=== PATIENT | male | born 1970 | race Caucasian/White ===

== ENCOUNTER 2018-02-25 19:54 | Emergency (ER) | payer BC ==
[2018-02-25] MEDS ORDERED: NA CHLORIDE 0.9% 1,000 ML ONE (21:56)
[2018-02-25 21:57] LABS: Absolute Lymphocytes (CBC) 2.1 K/uL (0.7-4.9); Absolute Monocytes 0.8 K/uL (0.1-1.3); Absolute Neutrophil 6.7 K/uL (1.8-8.0); Basophils % 0.8 % (0-1.3); Eosinophils % 1.3 % (0-4.4); Hematocrit 42.8 % (39.6-49.0); Lymphocytes % 21.6 % (15.3-44.8); MCH 29.7 pg (27.0-35.0); MCV 87.4 fL (80-100); MPV 9.2 fL (7.6-11.3); Monocytes % 8.2 % (3.3-12.3)
[2018-02-25 22:02] LABS: Protime INR 0.96
--- NOTE | 2018-02-25 22:04 | RAD REPORT ---
EXAM DESCRIPTION: RAD - Chest Single View - 02/25/2018 9:57 pm CLINICAL HISTORY: CONGESTION Chest pain. COMPARISON: Chest Pa And Lat (2 Views) dated 09/19/2016; Chest Pa And Lat (2 Views) dated 05/17/2016; C HEST PA AND LAT 2 VIEW dated 05/06/2013 FINDINGS: Portable technique limits examination quality. The lungs are grossly clear. The heart is normal in size. No displaced fractures. IMPRESSION: No acute intrathoracic process suspected.
[2018-02-25 22:24] LABS: ALT/SGPT 56 U/L (12-78); AST/SGOT 28 U/L (15-37); Alkaline Phosphatase 87 U/L (45-117); BUN Blood Urea Nitrogen 16 mg/dL (7-18); Bicarbonate 26 mmol/L (21-32); Bilirubin Direct 0.1 mg/dL (0-0.2); Bilirubin Total 0.3 mg/dL (0.2-1.0); Glucose Level 86 mg/dL (74-106); Magnesium 2.2 mg/dL (1.8-2.4); NT PRO-BNP 63 pg/mL (<125); Potassium 4.2 mmol/L (3.5-5.1); Protein, Total 7.9 g/dL (6.4-8.2); Sodium Level 139 mmol/L (136-145); Troponin (Emerg Dept Use Only) < 0.02 ng/mL (0.0-0.045)
[2018-02-25 23:21] LABS: Urine Blood NEGATIVE (NEG); Urine Glucose NEGATIVE (NEG); Urine Protein NEGATIVE (NEG); Urine pH 5.5 (5.0-7.0)
--- NOTE | 2018-02-26 00:19 | ER ---
Nurse's Notes [facility] Name: Sterling Stevenson Age: 48 yrs Sex: Male : 1970 Arrival Date: 02/25/2018 Time: 19:59 Bed 18 Private MD: Eyal Sanderson Diagnosis: Acute pharyngitis-bleeding Presentation: 02/25 20:08 Presenting complaint: Patient states: I was driving and I felt something in my throat la1 so I put my finger in there and it was covered in blood, right after that it felt like my sinuses cleared up. Pt denies difficulty or pain with swallowing or breathing. Transition of care: patient was not received from another setting of care. Onset of symptoms was February 25, 2018. Risk Assessment: Do you want to hurt yourself or someone else? Patient reports no desire to harm self or others. Initial Sepsis Screen: Does the patient meet any 2 criteria? No. Patient's initial sepsis screen is negative. Does the patient have a suspected source of infection? No. Patient's initial sepsis screen is negative. Care prior to arrival: None. 20:08 Method Of Arrival: Ambulatory la1 20:08 Acuity: ALEXIS 3 la1 Historical: - Allergies: 20:07 No Known Allergies; la1 - Home Meds: 20:07 Unable to obtain [Active]; la1 - PMHx: 20:07 Hypertension; la1 - PSHx: 20:07 Right arm and left leg; la1 - Immunization history:: Adult Immunizations up to date. - Social history:: Smoking status: Patient/guardian denies using tobacco, Patient uses chewing tobacco. - Ebola Screening: : No symptoms or risks identified at this time. - Family history:: not pertinent. Screenin:35 Abuse screen: Denies threats or abuse. Nutritional screening: No deficits noted. jd3 Tuberculosis screening: No symptoms or risk factors identified. Fall Risk Ambulatory Aid- None/Bed Rest/Nurse Assist (0 pts). Gait- Normal/Bed Rest/Wheelchair (0 pts) Mental Status- Oriented to own ability (0 pts). Total Nicolas Fall Scale indicates No Risk (0-24 pts). Assessment: 20:24 General: Appears in no apparent distress. Behavior is cooperative, appropriate for age, jd3 anxious. Pain: Denies pain. Neuro: Level of Consciousness is awake, alert, obeys commands, Oriented to person, place, time, situation. Cardiovascular: Capillary refill < 3 seconds Patient's skin is warm and dry. Respiratory: Airway is patent Breath sounds are clear bilaterally. Denies cough. GI: No signs and/or symptoms were reported involving the gastrointestinal system. : No signs and/or symptoms were reported regarding the genitourinary system. EENT: Tympanic membrane clear on left ear and right ear Ear canal clear on left ear and right ear Throat is clear Reports blood noted in throat prior to arrival.. Derm: Skin is intact, Skin is dry, Skin is normal, Skin temperature is warm. Musculoskeletal: Circulation, motion, and sensation intact. Range of motion: intact in all extremities. 21:56 Reassessment: Patient appears in no apparent distress at this time. No changes from jd3 previously documented assessment. Patient and/or family updated on plan of care and expected duration. Pain level reassessed. Patient is alert, oriented x 3, equal unlabored respirations, skin warm/dry/pink. 23:08 Reassessment: Patient appears in no apparent distress at this time. Patient and/or jd3 family updated on plan of care and expected duration. Pain level reassessed. Patient is alert, oriented x 3, equal unlabored respirations, skin warm/dry/pink. 23:51 Reassessment: Patient appears in no apparent distress at this time. Patient and/or jd3 family updated on plan of care and expected duration. Pain level reassessed. Patient is alert, oriented x 3, equal unlabored respirations, skin warm/dry/pink. small amount of blood noted at the back of throat. 02/26 01:05 Reassessment: Patient appears in no apparent distress at this time. No changes from jd3 previously documented assessment. Patient and/or family updated on plan of care and expected duration. Pain level reassessed. Patient is alert, oriented x 3, equal unlabored respirations, skin warm/dry/pink. Vital Signs: 02/25 20:09 BP 130 / 75; Pulse 82; Resp 18; Temp 98.5; Pulse Ox 97% on R/A; Weight 133.81 kg; la1 Height 5 ft. 11 in. (180.34 cm); Pain 0/10; 21:55 BP 149 / 78; Pulse 67; Resp 16 S; Pulse Ox 97% on R/A; Pain 0/10; jd3 23:08 BP 132 / 86; Pulse 66; Resp 18 S; Pulse Ox 97% on R/A; jd3 23:52 BP 143 / 86; Pulse 74; Resp 16 S; Pulse Ox 97% on R/A; jd3 02/26 01:05 BP 129 / 73; Pulse 74; Resp 17 S; Pulse Ox 97% on R/A; jd3 02/25 20:09 Body Mass Index 41.14 (133.81 kg, 180.34 cm) la1 ED Course: 02/25 19:59 Patient arrived in ED. es 19:59 Eyal Sanderson MD is Private Physician. es 20:09 Triage completed. la1 20:10 Arm band placed on right wrist. la1 20:24 Ricky Oro, PAUL is Primary Nurse. jd3 20:35 Patient has correct armband on for positive identification. Bed in low position. Call jd3 light in reach. Side rails up X 1. Adult w/ patient. 21:18 Manish Shoemaker MD is Attending Physician. jay 21:42 Inserted saline lock: 20 gauge in left antecubital area, using aseptic technique. Blood jd3 collected. Missed attempt(s): 20 gauge in left forearm. Bleeding controlled, band aid applied, catheter tip intact. 21:53 X-ray completed. Portable x-ray completed in exam room. Patient tolerated procedure ka well. 21:55 XRAY Chest (1 view) In Process Unspecified. EDMS 22:46 Soft Tissue Neck W/Contr CT In Process Unspecified. EDMS 22:50 CT completed. Patient moved to CT via wheelchair. Patient moved back from CT. cw1 02/26 00:18 Eyal Sanderson MD is Referral Physician. jay 00:18 Liliam Franco MD is Referral Physician. jay 01:04 No provider procedures requiring assistance completed. IV discontinued, intact, jd3 bleeding controlled, No redness/swelling at site. Pressure dressing applied. Administered Medications: 02/25 21:34 CANCELLED (Duplicate Order): Kenan-Synephrine [place] 0.5 % 2 sprays Intranasal once jay 21:53 Drug: NS 0.9% 1000 ml Route: IV; Rate: 1 bolus; Site: left antecubital; jd3 02/26 01:03 Follow up: Response: No adverse reaction; IV Status: Completed infusion; IV Intake: jd3 1000ml 01:03 Drug: Augmentin 875 mg Route: PO; jd3 01:03 Follow up: Response: Medication administered at discharge. jd3 Intake: 01:03 IV: 1000ml; Total: 1000ml. jd3 Outcome: 00:18 Discharge ordered by . jay 01:04 Discharged to home ambulatory, with family. jd3 01:04 Condition: stable 01:04 Discharge instructions given to patient, family, Instructed on discharge instructions, follow up and referral plans. medication usage, Demonstrated understanding of instructions, follow-up care, medications, Prescriptions given X 1. 01:11 Patient left the ED. jd3 Signatures: Dispatcher [employer] EDManish Peng MD MD cha Salyer, Nelida Ortiz, Crystal cw1 Marcus Rodriguez RN RN la1 Laverne Diaz Jonathon RN RN jd3 Corrections: (The following items were deleted from the chart) 02/25 20:35 20:24 Respiratory: Airway is patent Breath sounds are clear bilaterally. Denies cough, jd3 jd3 20:35 20:24 EENT: Tympanic membrane clear on left ear and right ear Throat is clear jd3 jd3 23:53 23:51 Reassessment: Patient appears in no apparent distress at this time. No changes jd3 from previously documented assessment. Patient and/or family updated on plan of care and expected duration. Pain level reassessed. Patient is alert, oriented x 3, equal unlabored respirations, skin warm/dry/pink. jd3
--- NOTE | 2018-02-26 00:19 | EDPHYS ---
Physician Documentation [facility] Name: Sterling Stevenson Age: 48 yrs Sex: Male : 1970 Arrival Date: 02/25/2018 Time: 19:59 Bed 18 Private MD: Eyal Sanderson ED Physician Manish Shoemaker HPI: 02/25 22:02 This 48 yrs old Male presents to ER via Ambulatory with complaints of jay Bleeding throat. 22:02 The patient presents with bleeding. The problem is located in the submental area, right jay submandibular area and right sternocleidomastoid. Onset: The symptoms/episode began/occurred just prior to arrival. Duration: The symptoms are intermittent, with episodes lasting seconds at a time. Modifying factors: The symptoms are alleviated by nothing, the symptoms are aggravated by nothing. Severity of symptoms: At their worst the symptoms were mild. The patient has not experienced similar symptoms in the past. Historical: - Allergies: 20:07 No Known Allergies; la1 - Home Meds: 20:07 Unable to obtain [Active]; la1 - PMHx: 20:07 Hypertension; la1 - PSHx: 20:07 Right arm and left leg; la1 - Immunization history:: Adult Immunizations up to date. - Social history:: Smoking status: Patient/guardian denies using tobacco, Patient uses chewing tobacco. - Ebola Screening: : No symptoms or risks identified at this time. - Family history:: not pertinent. ROS: 22:02 Constitutional: Negative for fever, chills, and weight loss, Eyes: Negative for injury, jay pain, redness, and discharge, Neck: Negative for injury, pain, and swelling, Cardiovascular: Negative for chest pain, palpitations, and edema, Respiratory: Negative for shortness of breath, cough, wheezing, and pleuritic chest pain, Abdomen/GI: Negative for abdominal pain, nausea, vomiting, diarrhea, and constipation, Back: Negative for injury and pain, : Negative for injury, bleeding, discharge, and swelling, MS/Extremity: Negative for injury and deformity, Skin: Negative for injury, rash, and discoloration, Neuro: Negative for headache, weakness, numbness, tingling, and seizure, Psych: Negative for depression, anxiety, suicide ideation, homicidal ideation, and hallucinations, Allergy/Immunology: Negative for hives, rash, and allergies, Endocrine: Negative for neck swelling, polydipsia, polyuria, polyphagia, and marked weight changes, Hematologic/Lymphatic: Negative for swollen nodes, abnormal bleeding, and unusual bruising. 22:02 ENT: Positive for sore throat. Exam: 22:02 Constitutional: This is a well developed, well nourished patient who is awake, alert, jay and in no acute distress. Head/Face: Normocephalic, atraumatic. Eyes: Pupils equal round and reactive to light, extra-ocular motions intact. Lids and lashes normal. Conjunctiva and sclera are non-icteric and not injected. Cornea within normal limits. Periorbital areas with no swelling, redness, or edema. ENT: Nares patent. No nasal discharge, no septal abnormalities noted. Tympanic membranes are normal and external auditory canals are clear. Oropharynx with no redness, swelling, or masses, exudates, or evidence of obstruction, uvula midline. Mucous membranes moist. Neck: Trachea midline, no thyromegaly or masses palpated, and no cervical lymphadenopathy. Supple, full range of motion without nuchal rigidity, or vertebral point tenderness. No Meningismus. Chest/axilla: Normal chest wall appearance and motion. Nontender with no deformity. No lesions are appreciated. Cardiovascular: Regular rate and rhythm with a normal S1 and S2. No gallops, murmurs, or rubs. Normal PMI, no JVD. No pulse deficits. Respiratory: Lungs have equal breath sounds bilaterally, clear to auscultation and percussion. No rales, rhonchi or wheezes noted. No increased work of breathing, no retractions or nasal flaring. Abdomen/GI: Soft, non-tender, with normal bowel sounds. No distension or tympany. No guarding or rebound. No evidence of tenderness throughout. Back: No spinal tenderness. No costovertebral tenderness. Full range of motion. Skin: Warm, dry with normal turgor. Normal color with no rashes, no lesions, and no evidence of cellulitis. MS/ Extremity: Pulses equal, no cyanosis. Neurovascular intact. Full, normal range of motion. Neuro: Awake and alert, GCS 15, oriented to person, place, time, and situation. Cranial nerves II-XII grossly intact. Motor strength 5/5 in all extremities. Sensory grossly intact. Cerebellar exam normal. Normal gait. Psych: Awake, alert, with orientation to person, place and time. Behavior, mood, and affect are within normal limits. Vital Signs: 20:09 BP 130 / 75; Pulse 82; Resp 18; Temp 98.5; Pulse Ox 97% on R/A; Weight 133.81 kg; la1 Height 5 ft. 11 in. (180.34 cm); Pain 0/10; 21:55 BP 149 / 78; Pulse 67; Resp 16 S; Pulse Ox 97% on R/A; Pain 0/10; jd3 23:08 BP 132 / 86; Pulse 66; Resp 18 S; Pulse Ox 97% on R/A; jd3 23:52 BP 143 / 86; Pulse 74; Resp 16 S; Pulse Ox 97% on R/A; [facility] 02/26 01:05 BP 129 / 73; Pulse 74; Resp 17 S; Pulse Ox 97% on R/A; [facility] 02/25 20:09 Body Mass Index 41.14 (133.81 kg, 180.34 cm) [facility] MDM: 02/25 21:48 Patient medically screened. [facility] 22:05 Data reviewed: vital signs, nurses notes, lab test result(s), EKG, radiologic studies. [facility] 02/25 21:09 Order name: Basic Metabolic Panel; Complete Time: 22:58 [facility] 02/25 21:09 Order name: CBC with Diff; Complete Time: 22:58 [facility] 02/25 21:09 Order name: LFT's; Complete Time: 22:58 [facility] 02/25 21:09 Order name: Magnesium; Complete Time: 22:58 [facility] 02/25 21:09 Order name: NT PRO-BNP; Complete Time: 22:58 [facility] 02/25 21:09 Order name: PT-INR; Complete Time: 22:58 [facility] 02/25 21:09 Order name: Troponin (emerg Dept Use Only); Complete Time: 22:58 [facility] 02/25 21:09 Order name: XRAY Chest (1 view); Complete Time: 22:58 [facility] 02/25 21:10 Order name: Type And Screen; Complete Time: 22:58 [facility] 02/25 22:02 Order name: Soft Tissue Neck W/Contr CT [facility] 02/25 23:03 Order name: Urine Dipstick--Ancillary (enter results) 02/25 21:09 Order name: EKG; Complete Time: 21:10 [facility] 02/25 21:09 Order name: Cardiac monitoring; Complete Time: 21:47 [facility] 02/25 21:09 Order name: EKG - Nurse/Tech; Complete Time: 21:47 [facility] 02/25 21:09 Order name: IV Saline Lock; Complete Time: 21:47 [facility] 02/25 21:09 Order name: Labs collected and sent; Complete Time: 21:47 [facility] 02/25 21:09 Order name: O2 Per Protocol; Complete Time: 21:10 [facility] 02/25 21:09 Order name: O2 Sat Monitoring; Complete Time: 21: [facility] 02/25 21:19 Order name: Urine Dipstick-Ancillary (obtain specimen); Complete Time: 23:02 [facility] Administered Medications: 21:34 CANCELLED (Duplicate Order): Kenan-Synephrine [place] 0.5 % 2 sprays Intranasal once [facility] 21:53 Drug: NS 0.9% 1000 ml Route: IV; Rate: 1 bolus; Site: left antecubital; [facility] 02/26 01:03 Follow up: Response: No adverse reaction; IV Status: Completed infusion; IV Intake: [facility] 1000ml 01:03 Drug: Augmentin 875 mg Route: PO; [facility] 01:03 Follow up: Response: Medication administered at discharge. [facility] Disposition: 02/26/18 00:18 Discharged to Home. Impression: Acute pharyngitis - bleeding. - Condition is Stable. - Discharge Instructions: Pharyngitis, Pharyngitis, Tcov-da-Eosl, Sore Throat, Ndov-[id number]. - Prescriptions for Augmentin 875- 125 mg Oral Tablet - take 1 tablet by ORAL route every 12 hours for 10 days; 20 tablet. - Medication Reconciliation Form, Thank You Letter, Antibiotic Education, Prescription Opioid Use form. - Follow up: Eyal Sanderson; When: 2 - 3 days; Reason: Recheck today's complaints, Continuance of care, Re-evaluation by your physician. Follow up: Liliam Franco; When: 1 - 2 days; Reason: Recheck today's complaints, Re-evaluation by your physician. - Problem is new. - Symptoms have improved. Signatures: Dispatcher [employer] EDManish Peng MD MD cha Attema, Lee, RN RN la1 Ricky Oro RN RN jd3 Corrections: (The following items were deleted from the chart) 02/25 21:34 21:29 Kenan-Synephrine [place] 0.5 % 2 sprays Intranasal once ordered. jay thompson 22:17 21:20 Chest For PE Angio+CT.RAD.BRZ ordered. [facility] EDMS 02/26 01:11 00:18 02/26/2018 00:18 Discharged to Home. Impression: Acute pharyngitis - bleeding. jd3 Condition is Stable. Discharge Instructions: Pharyngitis, Pharyngitis, Bfjy-[id number]-Cusq, Sore Throat, Mbit-xz-[id number]. Prescriptions for Augmentin 875-125 mg Oral Tablet - take 1 tablet by ORAL route every 12 hours for 10 days; 20 tablet. and Forms are Medication Reconciliation Form, Thank You Letter, Antibiotic Education, Prescription Opioid Use. Follow up: Eyal Sanderson; When: 2 - 3 days; Reason: Recheck today's complaints, Continuance of care, Re-evaluation by your physician. Follow up: Liliam Franco; When: 1 - 2 days; Reason: Recheck today's complaints, Re-evaluation by your physician. Problem is new. Symptoms have improved. jay
[2018-02-26] MEDS ORDERED: AMOX/K CLAV 875 MG TAB ONE (01:04)
--- NOTE | 2018-02-26 07:04 | EKG ---
Test Date: 2018-02-25 Test Time: 21:16:31 Back End Engineer: CHERRIE MEASUREMENT RESULTS: Intervals: Rate: 64 ID: [id number] QRSD: 94 QT: 386 QTc: 398 [place]: P: 20 ID: [id number] QRS: 24 T: 20 INTERPRETIVE STATEMENTS: Normal sinus rhythm Normal ECG No previous ECG available for comparison Electronically Signed On 02-26-18 07:04:12 PLANISHER by Cortes Romano
--- NOTE | 2018-02-26 09:57 | RAD REPORT ---
EXAM DESCRIPTION: CT - Soft Tissue Neck W/Contr CLINICAL HISTORY: PAIN Coughing up blood. COMPARISON: None TECHNIQUE All CT scans are performed using dose optimization technique as appropriate and may includ e automated exposure control or mA/KV adjustment according to patient size. FINDINGS: Nasopharyngeal tissues are normal in appearance. Fossa Rosenmller are normal. Parapharyngeal fat triangles are symmetric. Tongue base structures are normal. Epiglottis and aryepiglottic folds are normal. Piriform sinuses are well aerated. The vocal cords are normal in appearance. Both parotid glands appear somewhat prominent size symmetrically. Upper lung benitez are clear. Included intracranial contents are unremarkable. IMPRESSION: No acute finding demonstrated.
== END 2018-02-26 01:11 | disposition home or self-care (01) ==
LOC: ER 19:54
DX: J02.9 Acute pharyngitis, unspecified (principal); R04.1 Hemorrhage from throat; F17.220 Nicotine dependence, chewing tobacco, uncomplicated
CPT/HCPCS: 36415; 70491; 71045; 80048; 80076; 81003; 83735; 83880; 84484; 85025; 85610; 86850; 86900; 86901; 93005; 96360; 96361; 99284; J7030; Q9967

== ENCOUNTER → 2023-07-03 | Emergency (ER) | payer BC ==
[~2023-07-03] MED LIST: KETOROLAC 30 MG/ML INJ ONE; NA CHLORIDE 0.9% 1,000 ML ONE; ONDANSETRON 4 MG/2 ML VIAL ONE; OSELTAMIVIR 75 MG CAP PO ONE
--- OUTSIDE RECORDS SUMMARY | 2023-07-03 22:13 | XMS REPORT | Continuity of Care Document ---
Author Name Unknown Address [address] [facility] [address] [place] [address] [facility] Address [address] [facility] [address] [place] [address] Care Team Providers Care Application Lead Name Role Phone Eyal Sanderson Primary Care Physician [phone] JADE GOLDSTEIN Attending Clinician Unavaila Jade Mays Attending Clinician [phone], [facility] Attending Clinician Unavailable KJ LEWIS Attending Clinician Unavailable Kj Lewis MD Attending Clinician Lab, Ang - Db Attending Clinician Unavailable Doctor Unassigned, [place] Attending Clinician U MIRNA Agosto Attending Clinician UnaALICIA Sauceda [facility] Attending Clinicia n Unavailable 2, ISU CHAIR Attending Clinician Unavailable RON JASON Attending Clinician Unavailable JUN ALATORRE Attending Clinician Unavailable RADIOLOGY Attending Clinician Unavailable NADER SHAY Admitting Clinician Unavailable Payers Payer Name Policy Type Policy Number Effective Date Expirati on Date Source BCBS 2 [id number] 2020 00:00:00 Allergies, Adverse Reactions, Alerts Allergy Name Allergy Type Status Severity Reaction(s) Onset Date Inactive Date Treating Clinician Comments Source NO KNOWN ALLERGIE S Drug Class Active [facility] Social History Social Habit Start Date Stop Date Quantity Comments Source Sexual orientation [facility] Sex Assigned At 1970 00:00:00 1970 00:00:00 [facility] Smoking Status Start Date Stop Date Source Tobacco smoking consumption unknown [facility] Medications Ordered Medication Name Filled Medication Name Start Date Stop Date Current Medication? Ordering Clinician Indication Dosage Frequency Signature (SIG) Comments Components Source dexAMETHaso ne 4 mg tablet 05-09 10:22: 45 Yes 4mg Take 1 tablet by mouth every 12 (twelve) hours. Day after chemo 2 tablets twice daily for 2 days and then 1 tablet twice daily for 1 day. [facility] losartan 50 mg tablet 05-09 10:22: 45 Yes 50mg Take 1 tablet by mouth in the morning. [facility] dexAMETHaso ne 4 mg tablet 05-09 10:22: 45 Yes 4mg Take 1 tablet by mouth every 12 (twelve) hours. Day after chemo 2 tablets twice daily for 2 days and then 1 tablet twice daily for 1 day. [facility] losartan 50 mg tablet 05-09 10:22: 45 Yes 50mg Take 1 tablet by mouth in the morning. [facility] dexAMETHaso ne 4 mg tablet 05-09 10:22: 45 Yes 4mg Take 1 tablet by mouth every 12 (twelve) hours. Day after chemo 2 tablets twice daily for 2 days and then 1 tablet twice daily for 1 day. [facility] losartan 50 mg tablet 05-09 10:22: 45 Yes 50mg Take 1 tablet by mouth in the morning. [facility] dexAMETHaso ne 4 mg tablet 2023-0 05-09 10:22: 45 Yes 4mg Take 1 tablet by mouth every 12 (twelve) hours. Day after chemo 2 tablets twice daily for 2 days and then 1 tablet twice daily for 1 day. [facility] losartan 50 mg tablet 05-09 10:22: 45 Yes 50mg Take 1 tablet by mouth in the morning. [facility] dexAMETHaso ne 4 mg tablet 05-09 10:22: 45 Yes 4mg Take 1 tablet by mouth every 12 (twelve) hours. Day after chemo 2 tablets twice daily for 2 days and then 1 tablet twice daily for 1 day. [facility] losartan 50 mg tablet 05-09 10:22: 45 Yes 50mg Take 1 tablet by mouth in the morning. [facility] dexAMETHaso ne 4 mg tablet 05-09 10:22: 45 Yes 4mg Take 1 tablet by mouth every 12 (twelve) hours. Day after chemo 2 tablets twice daily for 2 days and then 1 tablet twice daily for 1 day. [facility] losartan 50 mg tablet 05-09 10:22: 45 Yes 50mg Take 1 tablet by mouth in the morning. [facility] dexAMETHaso ne 4 mg tablet 05-09 10:22: 45 Yes 4mg Take 1 tablet by mouth every 12 (twelve) hours. Day after chemo 2 tablets twice daily for 2 days and then 1 tablet twice daily for 1 day. [facility] losartan 50 mg tablet 05-09 10:22: 45 Yes 50mg Take 1 tablet by mouth in the morning. [facility] testosteron e cypionate 200 mg/mL injection 2022-04 00:00: 00 Yes [id number] 100mg 0.5 mL by Intramuscu lar route weekly. [facility] testosteron e cypionate 200 mg/mL injection 2022-04 00:00: 00 Yes [id number] 100mg 0.5 mL by Intramuscu lar route weekly. [facility] testosteron e cypionate 200 mg/mL injection 2022-04 2 00:00: 00 Yes [id number] 100mg 0.5 mL by Intramuscu lar route weekly. [facility] testosteron e cypionate 200 mg/mL injection 2022-04 00:00: 00 Yes [id number] 100mg 0.5 mL by Intramuscu lar route weekly. [facility] testosteron e cypionate 200 mg/mL injection 2022-04 00:00: 00 Yes [id number] 100mg 0.5 mL by Intramuscu lar route weekly. [facility] testosteron e cypionate 200 mg/mL injection 2022-04 00:00: 00 Yes [id number] 100mg 0.5 mL by Intramuscu lar route weekly. [facility] testosteron e cypionate 200 mg/mL injection 2022-04 00:00: 00 Yes [id number] 100mg 0.5 mL by Intramuscu lar route weekly. [facility] testosteron e cypionate 200 mg/mL injection 2022-04 00:00: 00 Yes [id number] 100mg 0.5 mL by Intramuscu lar route weekly. [facility] celecoxib 200 mg capsule 2022-04 14:55: 51 Yes 200mg Take 1 capsule by mouth. [facility] celecoxib 200 mg capsule 2022-04 14:55: 51 Yes 200mg Take 1 capsule by mouth. [facility] celecoxib 200 mg capsule 2022-04 14:55: 51 Yes 200mg Take 1 capsule by mouth. [facility] celecoxib 200 mg capsule 2022-04 14:55: 51 Yes 200mg Take 1 capsule by mouth. [facility] celecoxib 200 mg capsule 2022-04 14:55: 51 Yes 200mg Take 1 capsule by mouth. [facility] celecoxib 200 mg capsule 2022-04 14:55: 51 Yes 200mg Take 1 capsule by mouth. [facility] celecoxib 200 mg capsule 2022-04 14:55: 51 Yes 200mg Take 1 capsule by mouth. [facility] celecoxib 200 mg capsule 2022-04 14:55: 51 Yes 200mg Take 1 capsule by mouth. [facility] celecoxib 200 mg capsule 2022-04 14:55: 51 Yes 200mg Take 1 capsule by mouth. [facility] celecoxib 200 mg capsule 2022-04 14:55: 51 Yes 200mg Take 1 capsule by mouth. [facility] celecoxib 200 mg capsule 2022-04 14:55: 51 Yes 200mg Take 1 capsule by mouth. [facility] clindamycin 300 mg capsule 2022-04 0- 00:00: 00 Yes TAKE ONE 1 CAPSULE BY MOUTH IN THE MORNING AND 1 CAPSULE IN THE EVENING AND 1 CAPSULE BEFORE BEDTIME FOR 7 DAYS. [facility] clindamycin 300 mg capsule 2022-04 0 00:00: 00 Yes TAKE ONE 1 CAPSULE BY MOUTH IN THE MORNING AND 1 CAPSULE IN THE EVENING AND 1 CAPSULE BEFORE BEDTIME FOR 7 DAYS. [facility] clindamycin 300 mg capsule 2022-04 0 00:00: 00 Yes TAKE ONE 1 CAPSULE BY MOUTH IN THE MORNING AND 1 CAPSULE IN THE EVENING AND 1 CAPSULE BEFORE BEDTIME FOR 7 DAYS. [facility] clindamycin 300 mg capsule 2022-04 0 00:00: 00 Yes TAKE ONE 1 CAPSULE BY MOUTH IN THE MORNING AND 1 CAPSULE IN THE EVENING AND 1 CAPSULE BEFORE BEDTIME FOR 7 DAYS. [facility] clindamycin 300 mg capsule 2022-04 0 00:00: 00 05-09 00:00 :00 No TAKE ONE 1 CAPSULE BY MOUTH IN THE MORNING AND 1 CAPSULE IN THE EVENING AND 1 CAPSULE BEFORE BEDTIME FOR 7 DAYS. [facility] clindamycin 300 mg capsule 2022-04 0 00:00: 00 05-09 00:00 :00 No TAKE ONE 1 CAPSULE BY MOUTH IN THE MORNING AND 1 CAPSULE IN THE EVENING AND 1 CAPSULE BEFORE BEDTIME FOR 7 DAYS. [facility] testosteron e cypionate 200 mg/mL injection 12-14 00:00: 00 Yes 200mg 1 mL by Intramuscu lar route. [facility] testosteron e cypionate 200 mg/mL injection 12-14 00:00: 00 Yes 200mg 1 mL by Intramuscu lar route. [facility] testosteron e cypionate 200 mg/mL injection 12-14 00:00: 00 Yes 200mg 1 mL by Intramuscu lar route. [facility] ergocalcife rol, vitamin d2, 1,250 mcg (50,000 unit) capsule 12-14 00:00: 00 03-15 05:59 :00 No [id number] Take 1 capsule by mouth. [facility] ergocalcife rol, vitamin d2, 1,250 mcg (50,000 unit) capsule 12-14 00:00: 00 03-15 05:59 :00 No [id number] Take 1 capsule by mouth. [facility] ergocalcife rol, vitamin d2, 1,250 mcg (50,000 unit) capsule 12-14 00:00: 00 03-15 05:59 :00 No [id number] Take 1 capsule by mouth. [facility] ergocalcife rol, vitamin d2, 1,250 mcg (50,000 unit) capsule 12-14 00:00: 00 03-15 05:59 :00 No [id number] Take 1 capsule by mouth. [facility] testosteron e cypionate 200 mg/mL injection 12-14 00:00: 00 03-14 00:00 :00 No 200mg 1 mL by Intramuscu lar route. [facility] atorvastati n 10 mg tablet 09-29 00:00: 00 Yes 10mg Take 1 tablet by mouth. [facility] fluticasone propionate 50 mcg/actuati on nasal spray 09-29 00:00: 00 Yes 2{spray } Use 2 Sprays in each nostril. [facility] montelukast 10 mg tablet 09-29 00:00: 00 Yes 10mg Take 1 tablet by mouth. [facility] atorvastati n 10 mg tablet 09-29 00:00: 00 Yes 10mg Take 1 tablet by mouth. [facility] fluticasone propionate 50 mcg/actuati on nasal spray 09-29 00:00: 00 Yes 2{spray } Use 2 Sprays in each nostril. [facility] montelukast 10 mg tablet 09-29 00:00: 00 Yes 10mg Take 1 tablet by mouth. [facility] atorvastati n 10 mg tablet 09-29 00:00: 00 Yes 10mg Take 1 tablet by mouth. [facility] fluticasone propionate 50 mcg/actuati on nasal spray 0 09-29 00:00: 00 Yes 2{spray } Use 2 Sprays in each nostril. [facility] montelukast 10 mg tablet 2022-0 09-29 00:00: 00 Yes 10mg Take 1 tablet by mouth. [facility] atorvastati n 10 mg tablet 0 09-29 00:00: 00 Yes 10mg Take 1 tablet by mouth. [facility] fluticasone propionate 50 mcg/actuati on nasal spray 0 09-29 00:00: 00 Yes 2{spray } Use 2 Sprays in each nostril. [facility] montelukast 10 mg tablet 0 09-29 00:00: 00 Yes 10mg Take 1 tablet by mouth. [facility] atorvastati n 10 mg tablet 0 09-29 00:00: 00 Yes 10mg Take 1 tablet by mouth. [facility] fluticasone propionate 50 mcg/actuati on nasal spray 0 09-29 00:00: 00 Yes 2{spray } Use 2 Sprays in each nostril. [facility] montelukast 10 mg tablet 0 09-29 00:00: 00 Yes 10mg Take 1 tablet by mouth. [facility] atorvastati n 10 mg tablet 0 09-29 00:00: 00 Yes 10mg Take 1 tablet by mouth. [facility] fluticasone propionate 50 mcg/actuati on nasal spray 0 09-29 00:00: 00 Yes 2{spray } Use 2 Sprays in each nostril. [facility] montelukast 10 mg tablet 0 09-29 00:00: 00 Yes 10mg Take 1 tablet by mouth. [facility] atorvastati n 10 mg tablet 2022-0 09-29 00:00: 00 Yes 10mg Take 1 tablet by mouth. [facility] fluticasone propionate 50 mcg/actuati on nasal spray 2022-0 09-29 00:00: 00 Yes 2{spray } Use 2 Sprays in each nostril. [facility] montelukast 10 mg tablet 2022-0 09-29 00:00: 00 Yes 10mg Take 1 tablet by mouth. [facility] atorvastati n 10 mg tablet 2022-0 09-29 00:00: 00 Yes 10mg Take 1 tablet by mouth. [facility] lisinopriL 10 mg tablet 2022-0 09-29 00:00: 00 Yes 10mg Take 1 tablet by mouth. [facility] fluticasone propionate 50 mcg/actuati on nasal spray 0 09-29 00:00: 00 Yes 2{spray } Use 2 Sprays in each nostril. [facility] montelukast 10 mg tablet 2022-0 09-29 00:00: 00 Yes 10mg Take 1 tablet by mouth. [facility] atorvastati n 10 mg tablet 2022-0 09-29 00:00: 00 Yes 10mg Take 1 tablet by mouth. [facility] lisinopriL 10 mg tablet 2022-0 09-29 00:00: 00 Yes 10mg Take 1 tablet by mouth. [facility] fluticasone propionate 50 mcg/actuati on nasal spray 2022-0 09-29 00:00: 00 Yes 2{spray } Use 2 Sprays in each nostril. [facility] montelukast 10 mg tablet 2022-0 09-29 00:00: 00 Yes 10mg Take 1 tablet by mouth. [facility] atorvastati n 10 mg tablet 2022-0 09-29 00:00: 00 Yes 10mg Take 1 tablet by mouth. [facility] lisinopriL 10 mg tablet 2022-0 09-29 00:00: 00 Yes 10mg Take 1 tablet by mouth. [facility] fluticasone propionate 50 mcg/actuati on nasal spray 2022-0 09-29 00:00: 00 Yes 2{spray } Use 2 Sprays in each nostril. [facility] montelukast 10 mg tablet 09-29 00:00: 00 Yes 10mg Take 1 tablet by mouth. [facility] atorvastati n 10 mg tablet 09-29 00:00: 00 Yes 10mg Take 1 tablet by mouth. [facility] lisinopriL 10 mg tablet 09-29 00:00: 00 Yes 10mg Take 1 tablet by mouth. [facility] fluticasone propionate 50 mcg/actuati on nasal spray 09-29 00:00: 00 Yes 2{spray } Use 2 Sprays in each nostril. [facility] montelukast 10 mg tablet 09-29 00:00: 00 Yes 10mg Take 1 tablet by mouth. [facility] lisinopriL 10 mg tablet 09-29 00:00: 00 05-09 00:00 :00 No 10mg Take 1 tablet by mouth. [facility] lisinopriL 10 mg tablet 09-29 00:00: 00 05-09 00:00 :00 No 10mg Take 1 tablet by mouth. [facility] amLODIPine 5 mg tablet 0 07-06 00:00: 00 Yes 5mg Take 1 tablet by mouth. [facility] amLODIPine 5 mg tablet 0 07-06 00:00: 00 Yes 5mg Take 1 tablet by mouth. [facility] amLODIPine 5 mg tablet 2022-0 07-06 00:00: 00 Yes 5mg Take 1 tablet by mouth. [facility] amLODIPine 5 mg tablet 2022-0 07-06 00:00: 00 Yes 5mg Take 1 tablet by mouth. [facility] amLODIPine 5 mg tablet 2022-0 07-06 00:00: 00 Yes 5mg Take 1 tablet by mouth. [facility] amLODIPine 5 mg tablet 2022-0 07-06 00:00: 00 Yes 5mg Take 1 tablet by mouth. [facility] amLODIPine 5 mg tablet 2022-0 07-06 00:00: 00 Yes 5mg Take 1 tablet by mouth. [facility] amLODIPine 5 mg tablet 07-06 00:00: 00 Yes 5mg Take 1 tablet by mouth. [facility] amLODIPine 5 mg tablet 07-06 00:00: 00 Yes 5mg Take 1 tablet by mouth. [facility] amLODIPine 5 mg tablet 07-06 00:00: 00 Yes 5mg Take 1 tablet by mouth. [facility] amLODIPine 5 mg tablet 07-06 00:00: 00 Yes 5mg Take 1 tablet by mouth. [facility] Vital Signs Vital Name Observation Time Observation Value Comments S ource Systolic blood pressure 2023-05-09 16:47:00 93 mm[Hg] Pt denies any symptoms dizziness, chest pain [facility] Diastolic blood pressure 2023-05-09 16:47:00 49 mm[Hg] Pt denies any symptoms dizziness, chest pain [facility] Heart rate 2023-05-09 16:23:00 74 /min [facility] Body height 2023-05-09 16:23:00 177.8 cm [facility] Body weight 2023-05-09 16:23:00 122.653 kg [facility] BMI 2023-05-09 16:23:00 38.80 kg/m2 [facility] Oxygen saturation in Arterial blood by Pulse oximetry 2023-05-09 16:23:00 95 /min [facility] Body temperature 2023-05-09 16:21:00 36.22 Kenzie [facility] Respiratory rate 2023-05-09 16:21:00 18 /min [facility] Systolic blood pressure 2023-02-28 20:43:00 139 mm[Hg] [facility] Diastolic blood pressure 2023-02-28 20:43:00 81 mm[Hg] [facility] Heart rate 2023-02-28 20:43:00 68 /min [facility] Body temperature 2023-02-28 20:43:00 36.61 Kenzie [facility] Respiratory rate 2023-02-28 20:43:00 18 /min [facility] Body height 2023-02-28 20:43:00 180.3 cm [facility] Body weight 2023-02-28 20:43:00 135.172 kg [facility] BMI 2023-02-28 20:43:00 41.56 kg/m2 [facility] Oxygen saturation in Arterial blood by Pulse oximetry 2023-02-28 20:43:00 96 /min [facility] Procedures Procedure Date / Time Performed Performing Clinicia n Source BRENDA,POST-VOID RES,US,NON-IMAGING 2023-05-09 16:33:00 Jade Goldstein [facility] POCT URINALYSIS AUTO 2023-05-09 16:12:00 Ish Goldstein [facility] CONSENT/REFUSAL FOR DIAGNOSIS AND TREATMENT 2023-02-28 20:40:20 Doctor Unassigned, [place] [facility] ASSIGNMENT OF BENEFITS 2023-02-28 20:40:08 Docto r Unassigned, [place] [facility] POCT URINALYSIS AUTO 2023-02-28 00:00:00 Octavio Lewis [facility] REFERRAL- REQUEST/RESPONSE 2023-01-30 05:01:00 Doctor Unassigned, [place] [facility] Encounters Start Date/Time End Date/Time Encounter Type Admission Type Attending [facility] Care Facility Care Department Encounter ID Source 2023-05-16 00:00:00 2023-05-16 00:00:00 Telephone Jade Goldstein [facility] [id number] 350.1.13.10 4.2.7.2.686 [id number] [facility] 2023-05-16 00:00:00 2023-05-16 00:00:00 Telephone Jade Goldstein [facility] 1.2.840.114 350.1.13.10 4.2.7.2.686 [id number] [facility] 2023-05-15 00:00:00 2023-05-15 00:00:00 [facility] [id number] 350.1.13.10 4.2.7.2.686 [id number] [facility] 2023-05-09 11:00:00 2023-05-09 11:05:28 Recyclable Materials Sorter Visit 2, Adc Lab Agnelita [facility] BUILDING 1.2840.114 350.1.13.10 4.2.7.2.686 [id number] [facility] 2023-05-09 11:00:00 2023-05-09 11:05:28 Outpatient R ANGELITA [facility] [id number] [facility] 2023-05-09 10:00:00 2023-05-09 10:50:20 Office Visit Angelita [facility] BUILDING 1.2840.114 350.1.13.10 4.2.7.2.686 [id number] [facility] 2023-03-07 13:30:00 2023-03-07 13:30:00 [facility] [id number] 2023-03-07 00:00:00 2023-03-07 00:00:00 Patient Secure Msg Joshua [facility] 1.0.114 350.1.13.10 4.2.7.2.686 [id number] [facility] 2023-02-28 16:00:00 2023-02-28 16:15:00 Recyclable Materials Sorter Visit Lab, Neri Lewis [facility] 1.2.840.114 350.1.13.10 4.2.7.2.686 [id number] [facility] 2023-02-28 15:00:00 2023-02-28 15:23:37 Outpatient R KJ LEWIS [facility] [id number] [facility] 2023-02-28 15:00:00 2023-02-28 15:23:37 Office Visit Kj Lewis [facility] [id number] 350.1.13.10 4.2.7.2.686 [id number] [facility] 2023-02-28 00:00:00 2023-02-28 00:00:00 Orders Only Doctor Unassigned, [place] [facility] [id number] 350.1.13.10 4.2.7.2.686 [id number] [facility] 2023-01-30 00:00:00 2023-01-30 00:00:00 Orders Only Doctor Unassigned, [place] [facility] 1.2840.114 350.1.13.10 4.2.7.2.686 [id number] [facility] 2020-11-24 00:00:00 2020-11-24 00:00:00 Outpatient MIRNA SOLANO [id number] [facility] 2020-11-24 00:00:00 2020-11-24 00:00:00 Outpatient , ALICIA GIORDANO [id number] [facility] 2020-11-21 11:30:00 2020-11-21 11:30:00 Outpatient Ricardo, JAZMIN GIORDANO [id number] [facility] 2020-11-20 00:00:00 2020-11-20 00:00:00 Outpatient MIRNA SOLANO [id number] [facility] 2020-11-20 00:00:00 2020-11-20 00:00:00 Outpatient RON JASON [id number] [facility] 2020-11-19 11:00:00 2020-11-19 11:33:59 Outpatient JUN DUTTON [facility] [id number] [facility] 2020-11-16 00:00:00 2020-11-16 00:00:00 Outpatient RUSS MIRNA ALICIA GIORDANO [id number] [facility] 2019-04-15 10:23:01 2019-04-15 23:59:00 Outpatient R [facility] [id number] [facility] Results Test Description Test Time Test Comments Results Result Co mments Source [id number] 16:33:00* Test Item Value Reference Range Interpretation Comme nts PVR (URINE VOLUME) (test code = 5193) 21 ml 0-100 [facility], [id number] 16:13:00 * Test Item Value Reference Range Interpretation Comme nts POCT U SP GRAV (test code = 3255) 1.010 mg/dl 1.005-1.025 POCT PH U (test code = 3254) 6.0 mg/dl 5-8 POCT U LEUK EST (test code = 3263) Negative Negative - Negative POCT U NIT (test code = 3262) Negative Negative - Negati ve POCT U PROT (test code = 3259) Trace Negative - Negative A POCT U GLU (test code = 3256) Negative Negative - Negati ve POCT U KETONE (test code = 3258) Negative Negative - Negative POCT U UROBILI (test code = 3260) 0.2 mg/dl 0.2-1 POCT U BILI (test code = 3261) Negative Negative - Negative POCT U BLD (test code = 3257) Negative Negative - Negati ve POCT U COLOR (test code = 3266) yellow POCT U APPEAR (test code = 3267) clear Lab Interpretation (test cod e = 92133-6) Abnormal [facility], [id number] 16:13:00 * Test Item Value Reference Range Interpretation Comme nts POCT U SP GRAV (test code = 3255) 1.010 mg/dl 1.005-1.025 POCT PH U (test code = 3254) 6.0 mg/dl 5-8 POCT U LEUK EST (test code = 3263) Negative Negative - Negative POCT U NIT (test code = 3262) Negative Negative - Negati ve POCT U PROT (test code = 3259) Trace Negative - Negative A POCT U GLU (test code = 3256) Negative Negative - Negati ve POCT U KETONE (test code = 3258) Negative Negative - Negative POCT U UROBILI (test code = 3260) 0.2 mg/dl 0.2-1 POCT U BILI (test code = 3261) Negative Negative - Negative POCT U BLD (test code = 3257) Negative Negative - Negati ve POCT U COLOR (test code = 3266) yellow POCT U APPEAR (test code = 3267) clear Lab Interpretation (test cod e = 41704-1) Abnormal [facility] URINALYSIS, [id number] 21:05:00 * Test Item Value Reference Range Interpretation Comme nts POCT U SP GRAV (test code = 3255) 1.020 mg/dl 1.005-1.025 POCT PH U (test code = 3254) 7 mg/dl 5-8 POCT U LEUK EST (test code = 3263) neg Negative - Negative POCT U NIT (test code = 3262) neg Negative - Negati ve POCT U PROT (test code = 3259) neg Negative - Negative POCT U GLU (test code = 3256) neg Negative - Negati ve POCT U KETONE (test code = 3258) neg Negative - Negative POCT U UROBILI (test code = 3260) 1.0 mg/dl 0.2-1 POCT U BILI (test code = 3261) neg Negative - Negative POCT U BLD (test code = 3257) neg Negative - Negati ve POCT U COLOR (test code = 3266) yellow POCT U APPEAR (test code = 3267) [facility] [id number] 21:05:00 * Test Item Value Reference Range Interpretation Comme nts POCT U SP GRAV (test code = 3255) 1.020 mg/dl 1.005-1.025 POCT PH U (test code = 3254) 7 mg/dl 5-8 POCT U LEUK EST (test code = 3263) neg Negative - Negative POCT U NIT (test code = 3262) neg Negative - Negati ve POCT U PROT (test code = 3259) neg Negative - Negative POCT U GLU (test code = 3256) neg Negative - Negati ve POCT U KETONE (test code = 3258) neg Negative - Negative POCT U UROBILI (test code = 3260) 1.0 mg/dl 0.2-1 POCT U BILI (test code = 3261) neg Negative - Negative POCT U BLD (test code = 3257) neg Negative - Negati ve POCT U COLOR (test code = 3266) yellow POCT U APPEAR (test code = 3267) clear [facility] Notes Date/Time Note Provider Source 2023-05-16 13:53:53 [id number] -02-06T13:53:53 Yes that is correct my apologies [id number] encounter [id number]:54:43Telephone encounter [id number] for patient [id number] d C-CDA narrative [address] [id number] 98RRYHSVQNBDJVMLJFUFSBBB5261-07-66 T13:54:431.2.840.676366.1.72.3.15| 1.2.840.545326.1.13.104.2.7.2.7278 [id number] [facility] 2023-05-16 12:56:47 nvPLjO4clc1vjLb4N7+E qpBh6T7bfg6LCs xDqsV5i176zbrzhzaVJSnRYRK6SVwL8751 -02-06T12:56:47 Addressed in telephone encounter 05/16/23 75362-3Bbfsmlipt encounter IkbxEX2611-04-96Z28:57:01Telephone encounter NoteTXT1.2.840.977691.1.13.104.2.7 .2.833561|[id number] for patient rssj19315-1AgtzPOQJYDISQHRBdbtpfkc d C-CDA narrative [id number] A Hall RN[address] Wv[id number] 42WHAJUVLWIPUDXBUPXHJTZS2048-10-10 T12:57:011.2.840.536936.1.72.3.15| 1.2.840.815466.1.13.104.2.7.2.7278 [id number] Veena Long RN [facility] 2023-05-16 12:54:57 119HlRfkoXE4SA5jpxwx raZjTp5zFvusbg RWcUSnlisOL2JyAGwtzCsUtEhIGcvi3746 -02-06T12:54:57 Patient notified of results/recommendations, understanding was verbalized via teach back.Patient states that he stopped his testosterone 3 months ago. States he is currently receiving chemo and radiation by Dr Rust. Will route to provider for recommendations. 42720-8Fnqofvaeb encounter JheaBB3433-96-72W77:56:38Telephone encounter NoteTXT1.2.840.247727.1.13.104.2.7 .2.367896|[id number] for patient gbgo20114-1GorcZVCNCOMPPJNJdthuxif d C-CDA narrative [id number] A Hall RN[address] Nr[id number] 89QDRJEIXAETXRVGHMEAULUB0814-81-59 T12:56:381.2.840.798735.1.72.3.15| 1.2.840.835077.1.13.104.2.7.2.7278 [id number] Veena Long RN [facility] 2023-05-16 10:44:30 qR4E0cFL2NgVwr0VneAI oPWwd6vNy4CFL3 WPhnwSydNVyFpgKzAQAPIAZjK8vc5x3351 -02-06T10:44:30 Pt is stating Pt has questions about his lab work. He did not fully understand what he was told and would like to speak to someone.Bennett- [phone] assist 88486-0Fxnndhdno encounter IgtuED7357-02-19P12:47:49Telephone encounter NoteTXT1.2.840.436967.1.13.104.2.7 .2.443235|[id number] for patient mjpy74802-5OhwkDEVVVYSGENPTaeatzmw d C-CDA narrative [id number] [id number] 91YSRMTFPIQIPPWYODRPEKQI0044-96-48 T10:47:491.2.840.870662.1.72.3.15| 1.2.840.751801.1.13.104.2.7.2.7278 [id number] Nestor Gardner [facility] 2023-05-16 09:03:22 3OZClnIwTmQayysKV2W7 anpUfMYWzwBi7k 3TJ/qe4sFZEBtuNA2QFLLBycdVKCY9688 -02-06T09:03:22 Images from the original note were not included.Veena Long RN05/16/2023 9:03 AM CARETAKER RESORT Back to TopAttempted to contact patient with no answer, Voicemail left at this time with clinic phone number and instructed patient to return call.Telephone encounter created.Jade Goldstein, FNP2 2:30 PM CSTBMP Within normal limitsCBC within normal limitsE2 15Testosterone 193PSA 1.36CMp is within normal limits except ALT 74 it has increased since starting TRT therapy I would like to repeat CMP it in 1 week if remains elevated may need to reduce dosage of TRT order has been placed. 60714-1Kkgcjvbka encounter GizyCE3129-56-14U19:03:37Telephone encounter NoteTXT1.2.840.095295.1.13.104.2.7 .2.308079|[id number] for patient rwas62632-0NgxnQFWTFOZPSJPTavttrga d C-CDA narrative text[address] Qa[id number] 78AKGLSHTPLCXIBMEZGHMXGI6938-42-19 T09:03:371.2.840.055071.1.72.3.15| 1.2.840.791868.1.13.104.2.7.2.7278 [id number] [facility] 2023-05-09 11:00:00 3ATowtpNc8qjCp3Iwvh1 BTm8/Wtriy4Azd NAKCenamkXjS9LGd4+JaiaiisYFTIu9666 -01-30T11:00:00 Images from the original note were not included.Venipuncture collection performed by clean technique on the right hand. Total of 1 attempts were made. Slight pressure and a bandage/dressing were applied to the site(s). The patient experienced no complications. The following specimens were processed according to instructions and sent to [facility] laboratories per lab order on 05/09/2023:LT BLUESST 3REDLAV 1PPTDK GREEN (LiHep)DK GREEN (SodH)GRAYDK BLUE (K2)DK BLUE (S)ACDBlood CultureNIPT/NTD 93154-4Hydhn QcghXU0835-39-00W80:05:51Nurse NoteTXT1.2.840.986141.1.13.104.2.7 .2.259761|[id number] for patient qnni36665-3Wcsjb NoteLNNARRATIVEFormatted C-CDA narrative textUT[address] Vd[id number] 79YYYYVNUBUQPWXLEOBDYPSN0567-16-57 T11:05:511.2.840.610526.1.72.3.15| 1.2.840.798759.1.13.104.2.7.2.7278 [id number] [facility]"
[2023-07-03 23:14] LABS: Absolute Lymphocytes (CBC) 0.3 K/uL (0.7-4.9); Absolute Monocytes 0.6 K/uL (0.1-1.3); Basophils % 0.4 % (0-1.3); Eosinophils % 0.1 % (0-4.4); Hematocrit 34.6 % (39.6-49.0); Hemoglobin 11.9 g/dL (13.6-17.9); Lymphocytes % 4.5 % (15.3-44.8); MCH 30.8 pg (27.0-35.0); MCHC 34.4 g/dL (32.0-36.0); MCV 89.6 fL (80-100); MPV 8.4 fL (7.6-11.3); Monocytes % 10.1 % (3.3-12.3); Neutrophils % 84.9 % (41.7-73.7); Nucleated Red Blood Cells % 0.1 % (0-0); Platelets 204 thou/uL (152-406); RBC Red Blood Cell Count 3.87 M/uL (4.33-5.43); Red Cell Distribution Width 16.1 % (12.1-15.2)
[2023-07-03 23:15] LABS: PT Prothrombin Time 12.6 SECONDS (9.5-12.5); PTT, Activated Partial Thromb 30.9 SECONDS (24.3-36.9); Protime INR 1.15
[2023-07-03 23:22] LABS: Albumin 3.3 g/dL (3.4-5.0); Anion Gap 11.3 mEq/L (5.0-15.0); Bilirubin Total 0.6 mg/dL (0.2-1.0); Globulin 3.3 g/dL (2.3-3.5); Potassium 3.3 mEq/L (3.5-5.1); Protein, Total 6.6 g/dL (6.4-8.2)
[2023-07-03 23:37] LABS: SARS-CoV-2 Antigen CONTROL BLUE LINE VIS/BG OK; SARS-CoV-2 Antigen Rapid Res Negative (Negative)
--- NOTE | 2023-07-04 01:18 | ER ---
Nurse's Notes 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 JUST jj7 FINISHED CHEMO LAST MONTH. STARTED HAVING FEVER, DIARRHEA AND RLQ PAIN LAST NIGHT. Coronavirus screen: At this time, the client does not indicate any symptoms associated with coronavirus-19. Ebola Screen: No symptoms or risks identified at this time. Initial Sepsis Screen: Does the patient meet any 2 criteria? HR > 90 bpm. Yes Does the patient have a suspected source of infection? No. Patient's initial sepsis screen is negative. Risk Assessment: Do you want to hurt yourself or someone else? Patient reports no desire to harm self or others. Onset of symptoms was July 02, 2023. 22:24 Method Of Arrival: Ambulatory [facility] 22:24 Acuity: ALEXIS 3 jj7 Triage Assessment: 22:30 General: Appears in no apparent distress. uncomfortable, Behavior is calm, cooperative, jj7 appropriate for age. Pain: Complains of pain in right lower quadrant. GI: Reports lower abdominal pain, diarrhea, nausea. Historical: - Allergies: 22:30 No Known Allergies; jj7 - PMHx: 22:30 Hypertension; TONSIL CANCER (Hypertension); jj7 - PSHx: 22:30 LEFT ANKLE (Hypertension); RIGHT ELBOW (Hypertension); jj7 - Immunization history:: Client reports having NOT received the Covid vaccine. Flu vaccine is not up to date. - Social history:: Smoking status: Patient denies any tobacco usage or history of. Patient/guardian denies using alcohol, street drugs, IV drugs. Screenin:32 [facility] ED Fall Risk Assessment (Adult) History of falling in the last 3 months, jj7 including since admission No falls in past 3 months (0 pts) Confusion or Disorientation No (0 pts) Intoxicated or Sedated No (0 pts) Impaired Gait No (0 pts) Mobility Assist Device Used No (0 pt) Altered Elimination No (0 pt) Score/Fall Risk Level 0 - 2 = Low Risk Oriented to surroundings, Maintained a safe environment, Educated pt \T\ family on fall prevention, incl call for assistance when getting out of bed. Abuse screen: Denies threats or abuse. Nutritional screening: No deficits noted. Tuberculosis screening: No symptoms or risk factors identified. Assessment: 23:15 Reassessment: Patient and/or family updated on plan of care and expected duration. Pain bm8 level reassessed. Patient is alert, oriented x 3, equal unlabored respirations, skin warm/dry/pink. General: Appears in no apparent distress. comfortable, Behavior is calm, cooperative. Pain: Complains of pain in right lower quadrant Pain does not radiate. Pain currently is 6 out of 10 on a pain scale. Quality of pain is described as aching, dull, Pain began 1 day ago. Neuro: Level of Consciousness is awake, alert, obeys commands, Oriented to person, place, time, situation, Research Epidemiologist are equal bilaterally Moves all extremities. Full function Gait is steady, Speech is normal. Cardiovascular: Denies chest pain, Heart tones S1 S2 Capillary refill < 3 seconds Patient's skin is warm and dry. Respiratory: No deficits noted. Airway is patent Respiratory effort is even, unlabored, Respiratory pattern is regular, Breath sounds are clear bilaterally. GI: Abdomen is round Stools are reported to be loose, diarrhea. Last BM at 22:40. Bowel sounds hyperactive in right upper quadrant, left upper quadrant, right lower quadrant and left lower quadrant Abdomen is tender to palpation in right lower quadrant. : No signs and/or symptoms were reported regarding the genitourinary system. EENT: No signs and/or symptoms were reported regarding the EENT system. Derm: No signs and/or symptoms reported regarding the dermatologic system. Musculoskeletal: No signs and/or symptoms reported regarding the musculoskeletal system. 07/03 00:05 Reassessment: Patient appears in no apparent distress at this time. Patient and/or bm8 family updated on plan of care and expected duration. Pain level reassessed. General: Appears in no apparent distress. comfortable, Behavior is calm, cooperative. Pain: Complains of pain in right lower quadrant Pain does not radiate. Pain currently is 5 out of 10 on a pain scale. Quality of pain is described as aching, dull. Neuro: Level of Consciousness is awake, alert, obeys commands, Oriented to person, place, time, situation, Research Epidemiologist are Moves all extremities. Full function. Cardiovascular: No deficits noted. Respiratory: No deficits noted. GI: Abdomen is tender to palpation in right lower quadrant. 01:18 Reassessment: Patient appears in no apparent distress at this time. No changes from [facility] previously documented assessment. Patient and/or family updated on plan of care and expected duration. Pain level reassessed. Patient is alert, oriented x 3, equal unlabored respirations, skin warm/dry/pink. Vital Signs: 07/02 22:24 BP 120 / 75; Pulse 102; Resp 20; Temp 97.5; Pulse Ox 98% ; Weight 110.68 kg; Height 5 jj7 ft. 10 in. ; Pain /; 07/03 00:04 BP 134 / 79; Pulse 81; Resp 20; Temp 98.2; Pulse Ox 98% on R/A; Pain /; 8 00:30 BP 135 / 76; Pulse 77; Resp 18; Pulse Ox 96% on R/A; km8 01:00 BP 135 / 73; Pulse 80; Resp 18; Pulse Ox 96% on R/A; km8 07/02 22:24 Body Mass Index 35.01 (110.68 kg, 177.8 cm) [facility] 07/02 22:24 Pain Scale: Adult [facility] 07/03 00:04 Pain Scale: Adult 8 [place] Coma Score: 07/02 23:15 Eye Response: spontaneous(4). Motor Response: obeys commands(6). Verbal Response: bm8 oriented(5). Total: 15. ED Course: 22:12 Patient arrived in ED. es 22:13 Ismael Turner MD is Attending Physician. ec2 22:13 ANGE RICO is Private Physician. es 22:30 Triage completed. jj7 22:30 Arm band placed on right wrist. jj7 22:32 Patient has correct armband on for positive identification. jj7 22:34 Aguilar Garcia, RN is Primary Nurse. bm8 22:45 Initial lab(s) drawn, by ED staff, sent to lab. First set of blood cultures drawn by ED [facility] staff, COVID swab sent to lab. Flu and/or RSV swab sent to lab. 22:45 Inserted saline lock: 20 gauge in right hand, using aseptic technique. Blood collected. bm8 22:48 Radiology exam delayed due to IV insertion attempt and/or patient not having az appropriate IV at this time. 22:56 SARS RAPID Sent. km8 22:56 Influenza Screen (a \T\ B) Sent. km8 22:56 CBC with Diff Sent. km8 22:56 CMP Sent. km8 22:56 Lactate w/ 2H reflex if indic. Sent. km8 22:56 Protime (+inr) Sent. km8 22:56 Ptt, Activated Sent. km8 23:00 Inserted saline lock: 20 gauge in left antecubital area, using aseptic technique. Blood bm8 collected. Patient maintains SpO2 saturation greater than 95% on room air. 23:15 cardiac monitor technician on. Pulse ox on. NIBP on. Door closed. Noise minimized. Visitors bm8 limited. Warm blanket given. Verbal reassurance given. 23:22 Chest Single View XRAY In Process Unspecified. EDMS 23:25 Warm blanket given. Pillow given. jj7 23:38 Notified ED physician of a critical lab result(s). Flu B positive. vc1 07/03 00:24 CT Abd/Pelvis - IV Contrast Only In Process Unspecified. EDMS 01:19 Provided Education on: D/C TEACHING. km8 01:19 No provider procedures requiring assistance completed. km8 01:30 IV discontinued, intact, bleeding controlled, No redness/swelling at site. Pressure km8 dressing applied. Administered Medications: 07/02 23:14 Drug: NS 0.9% IV 1000 ml IV at 1 bolus Per protocol; 1000 mL bolus Route: IV; Rate: 1 bm8 bolus; Site: right hand; 07/03 00:15 Follow up: IV Status: Completed infusion; IV Intake: 1000ml bm8 07/02 23:49 Drug: Oseltamivir PO 75 mg PO once Route: PO; bm8 07/03 00:15 Follow up: Response: No adverse reaction bm8 00:15 Drug: Ketorolac IVP 15 mg IVP once Route: IVP; Site: right hand; bm8 01:18 Follow up: Response: No adverse reaction; Nausea is decreased km8 00:15 Drug: Ondansetron IVP 4 mg IVP once; over 2 minutes Route: IVP; Site: right hand; 8 01:19 Follow up: Response: No adverse reaction; Nausea is decreased km8 Medication: 07/02 23:15 VIS not applicable for this client. bm8 Intake: 07/03 00:15 IV: 1000ml; Total: 1000ml. bm8 Outcome: 01:17 Discharge ordered by . ec2 01:30 Discharged to home ambulatory, with significant other, km8 01:30 Condition: stable 01:30 Discharge instructions given to patient, significant other, Instructed on discharge instructions, follow up and referral plans. medication usage, Demonstrated understanding of instructions, follow-up care, medications, Prescriptions given X 2, 01:31 Patient left the ED. km8 Signatures: Dispatcher [employer] EDMS Nelida Sparks Araceli az Calcote, Vanessa, RN RN 1 Merna Her, RN RN jj7 Ismael Turner MD MD ec2 Mayra Olguin RN RN km8 Aguilar Garcia RN RN bm8 Corrections: (The following items were deleted from the chart) 07/02 23:12 22:56 LIPASE+C.LAB.BRZ drawn and sent. 8 EDWI
--- NOTE | 2023-07-04 01:18 | EDPHYS ---
Physician Documentation [facility] Name: Sterling Stevenson Age: 53 yrs Sex: Male : 1970 Arrival Date: 07/03/2023 Time: 22:09 Bed 3 Private MD: ANGE RICO ED Physician Ismael Turner HPI: 07/02 22:29 This 53 yrs old Male presents to ER via Unassigned with complaints of Fever, ec2 Diarrhea, Abdominal Pain. 22:29 Patient arrives today due to concern for abdominal pain with associated fevers. Patient ec2 reports that he has been having abdominal pain since yesterday. Patient reports pain is right abdomen. Patient reports some associated nausea, no vomiting. Reports loose stools as well. Reports no previous abdominal surgeries. Patient reports history of previous squamous cell carcinoma of the right tonsil. Not an active chemotherapy or radiation.. Historical: - Allergies: 22:30 No Known Allergies; jj7 - PMHx: 22:30 Hypertension; TONSIL CANCER (Hypertension); jj7 - PSHx: 22:30 LEFT ANKLE (Hypertension); RIGHT ELBOW (Hypertension); jj7 - Immunization history:: Client reports having NOT received the Covid vaccine. Flu vaccine is not up to date. - Social history:: Smoking status: Patient denies any tobacco usage or history of. Patient/guardian denies using alcohol, street drugs, IV drugs. ROS: 22:29 Constitutional: as per hpi ec2 Exam: 22:29 Constitutional: GEN: NAD Head: atraumatic Eyes: EOMI Ears: External ears are ec2 normal. CV: Tachycardia LUNGS: no respiratory distress ABD: non-distended, soft, tender in the right abdomen, not guarding, not rigid SKIN: no evidence of rashes MSK: no evidence of trauma NEURO: moves all extremities equally Vital Signs: 22:24 BP 120 / 75; Pulse 102; Resp 20; Temp 97.5; Pulse Ox 98% ; Weight 110.68 kg; Height 5 jj7 ft. 10 in. ; Pain /; 07/03 00:04 BP 134 / 79; Pulse 81; Resp 20; Temp 98.2; Pulse Ox 98% on R/A; Pain 5/10; bm8 00:30 BP 135 / 76; Pulse 77; Resp 18; Pulse Ox 96% on R/A; km8 01:00 BP 135 / 73; Pulse 80; Resp 18; Pulse Ox 96% on R/A; km8 07/02 22:24 Body Mass Index 35.01 (110.68 kg, 177.8 cm) [facility] 07/02 22:24 Pain Scale: Adult [facility] 07/03 00:04 Pain Scale: Adult bm8 [place] Coma Score: 07/02 23:15 Eye Response: spontaneous(4). Motor Response: obeys commands(6). Verbal Response: bm8 oriented(5). Total: 15. MDM: 22:28 Patient medically screened. ec2 22:29 Data reviewed: vital signs. ED course: Patient arrives today for evaluation of ec2 abdominal pain with associated nausea and diarrhea. Examination remarkable for well-appearing nontoxic dividual with slight tachycardia along with right-sided abdominal TTP. Will obtain lab work, CT imaging, chest x-ray. . 22:52 ED course: EKG independently reviewed and interpreted by me, shows normal sinus rhythm, ec2 rate of 90, no acute ST segment elevations, nonconcerning intervals.. 23:40 ED course: CBC is reassuring. Metabolic profile shows slight hypokalemia, patient is ec2 positive for flu B, lactic acid within normal ranges, negative COVID testing. . 23:58 ED course: Chest x-ray shows no acute intrathoracic process. . ec2 07/03 01:14 ED course: CT imaging shows colitis, likely from patient's influenza.. ec2 07/02 22:29 Order name: Blood Culture Adult (2) 2 07/02 22:29 Order name: CBC with Diff; Complete Time: 23:40 ec2 07/02 22:29 Order name: CMP; Complete Time: 23:40 ec2 07/02 22:29 Order name: Lactate w/ 2H reflex if indic.; Complete Time: 23:40 ec2 07/02 22:29 Order name: Protime (+inr); Complete Time: 23:40 ec2 07/02 22:29 Order name: Ptt, Activated; Complete Time: 23:40 ec2 07/02 22:29 Order name: Influenza Screen (a \T\ B); Complete Time: 23:40 ec2 07/02 22:29 Order name: SARS RAPID; Complete Time: 23:40 ec2 07/02 23:03 Order name: Glucose, Ancillary Testing; Complete Time: 23:40 EDMS 07/02 23:05 Order name: Glucose, Ancillary Testing EDMS 07/02 23:11 Order name: Lipase; Complete Time: 23:40 EDMS 07/02 22:29 Order name: Chest Single View XRAY ec2 07/02 22:29 Order name: CT Abd/Pelvis - IV Contrast Only ec2 07/02 22:29 Order name: EKG; Complete Time: 22:29 ec2 07/02 22:29 Order name: Accucheck; Complete Time: 22:55 ec2 07/02 22:29 Order name: Cardiac monitoring; Complete Time: 22:55 ec2 07/02 22:29 Order name: EKG - Nurse/Tech; Complete Time: 22:55 ec2 07/02 22:29 Order name: IV Saline Lock - Large Bore; Complete Time: 22:55 ec2 07/02 22:29 Order name: Labs collected and sent; Complete Time: 22:55 ec2 07/02 22:29 Order name: O2 Per Protocol; Complete Time: 22:55 ec2 07/02 22:29 Order name: O2 Sat Monitoring; Complete Time: 22:55 ec2 07/02 22:29 Order name: Vital Signs; Complete Time: 22:55 ec2 Administered Medications: 07/02 23:14 Drug: NS 0.9% IV 1000 ml IV at 1 bolus Per protocol; 1000 mL bolus Route: IV; Rate: 1 bm8 bolus; Site: right hand; 07/03 00:15 Follow up: IV Status: Completed infusion; IV Intake: 1000ml 8 07/02 23:49 Drug: Oseltamivir PO 75 mg PO once Route: PO; 8 07/03 00:15 Follow up: Response: No adverse reaction bm8 00:15 Drug: Ketorolac IVP 15 mg IVP once Route: IVP; Site: right hand; bm8 01:18 Follow up: Response: No adverse reaction; Nausea is decreased km8 00:15 Drug: Ondansetron IVP 4 mg IVP once; over 2 minutes Route: IVP; Site: right hand; bm8 01:19 Follow up: Response: No adverse reaction; Nausea is decreased km8 Disposition Summary: 07/04/23 01:17 Discharge Ordered Notes: Location: Home ec2 Condition: Stable ec2 Diagnosis - Influenza due to other identified influenza virus with gastrointestinal ec2 manifestations Followup: ec2 - With: Private Physician - When: - Reason: Re-evaluation by your physician Discharge Instructions: - Discharge Summary Sheet ec2 - Influenza, Adult ec2 Forms: - Medication Reconciliation Form ec2 - Thank You Letter ec2 - Antibiotic Education ec2 - Prescription Opioid Use ec2 - Patient Portal Instructions ec2 - Leadership Thank You Letter ec2 Prescriptions: - Compazine 10 mg Oral Tablet - take 1 tablet ORAL route every 8 hours As needed; 10 tablet; Refills: 0, ec2 Product Selection Permitted - Tamiflu 75 mg Oral capsule - take 1 tablet ORAL route every 12 hours for 5 days; 10 tablet; Refills: 0, ec2 Product Selection Permitted Signatures: Dispatcher [employer] Merna Power RN RN jj7 Ismael Turner MD MD ec2 Aguilar Garcia RN RN bm8 Mayra Olguin RN km8 Corrections: (The following items were deleted from the chart) 07/02 23:12 22:31 LIPASE+C.LAB.BRZ ordered. DAIN GAUTAM
[2023-07-04 01:47] VITALS: BP 135/73; TEMP 98.2; O2SAT 96
--- NOTE | 2023-07-04 11:23 | RAD REPORT ---
EXAM DESCRIPTION: RAD - Chest Single View - 07/03/2023 11:20 pm CLINICAL HISTORY: Cough;Dyspnea COMPARISON: None FINDINGS: Cardiac silhouette is within normal limits. There is no focal parenchymal or pleural disea se. There is no acute osseous process visualized. IMPRESSION: No evidence of acute cardiopulmonary disease. Electronically signed by: Manny Adler MD 07/04/2023 03:35 AM CDT Due to temporary technical issues with the PACS/Fluency reporting system, reports are being signed by the in house radiologists without review as a courtesy to insure prompt reporting. The interpreting radiologist is fully responsible for the content of the report.
--- NOTE | 2023-07-04 12:39 | RAD REPORT ---
EXAM DESCRIPTION: CT - Abdomen Pelvis W Contrast - 07/04/2023 6:32 am CLINICAL HISTORY: The patient is 53 years old and is Male; ABD PAIN TECHNIQUE: Axial computed tomography images of the abdomen and pelvis with intravenous contrast. S agittal and coronal reformatted images were created and reviewed. This CT exam was performed using one or more of the following dose reduction techniques: automated exposure control, adjustment of t he mA and/or kV according to patient size, and/or use of iterative reconstruction technique. DLP: 1844 mGy*cm COMPARISON: None. FINDINGS: LUNG BASES: Unremarkable. No mass. No consolidation. ABDOMEN: LIVER: Unremarkable. No mass. GALLBLADDER AND BILE DUCTS: Unremarkable. No calcified stones. No ductal dilation. PANCREAS: Unremarkable. No mass. No ductal dilation. SPLEEN: Unremarkable. No splenomegaly. ADRENALS: Unremarkable. No mass. KIDNEYS AND URETERS: Punctate nonobstructive bilateral renal stones. STOMACH AND BOWEL: Circumferential wall thickening of the cecum and ascending colon. Associated muc osal enhancement. No obstruction. PELVIS: APPENDIX: No findings to suggest acute appendicitis. BLADDER: Bladder is decompressed. REPRODUCTIVE: Unremarkable as visualized. ABDOMEN and PELVIS: INTRAPERITONEAL SPACE: Unremarkable. No free air. No significant fluid collection. BONES/JOINTS: Advanced lower lumbar degenerative changes. No acute fracture. No dislocation. SOFT TISSUES: Fat-containing umbilical and bilateral inguinal hernias. VASCULATURE: Unremarkable. No abdominal aortic aneurysm. LYMPH NODES: Unremarkable. No enlarged lymph nodes. IMPRESSION: 1. Circumferential wall thickening of the cecum and ascending colon. Associated mucosa l enhancement. Findings concerning for regional colitis. 2. Punctate nonobstructive bilateral renal stones. Electronically signed by: William Vazquez DO 07/04/2023 01:07 AM CDT Due to temporary technical issues with the PACS/Fluency reporting system, reports are being signed by the in house radiologists without review as a courtesy to insure prompt reporting. The interpreting radiologist is fully responsible for the content of the report.
--- NOTE | 2023-07-04 17:02 | EKG ---
Test Date: 2023-07-03 Test Time: 21:46:56 Casework Manager: KATTY MEASUREMENT RESULTS: Intervals: Rate: 90 MS: 176 QRSD: 78 QT: 342 QTc: 418 [place]: P: 23 MS: 176 QRS: -13 T: 39 INTERPRETIVE STATEMENTS: Sinus rhythm with fusion complexes Otherwise normal ECG Compared to ECG 02/25/2018 21:16:31 Fusion complex(es) now present Electronically Signed On 07-04-23 17:00:17 CDT by Agapito Lange
== END ==
LOC: ER 22:09
DX: J10.2 Influenza due to other identified influenza virus with gastrointestinal manifestations (principal); Z11.52 Encounter for screening for COVID-19; Z28.310 Unvaccinated for COVID-19
CPT/HCPCS: 93005; 87040 ×2; 85025; 36415; 85610; 82947; 83605; 85730; 83690; 80053; 87804 ×2; 74177; 71045; 87811; Q9967; J7030